=== PATIENT | male | born 1975 | race American Indian/Alaskan Native ===

== ENCOUNTER 2018-04-20 10:59 | Outpatient (CLI) | payer BC | END 2018-04-20 11:00 | disposition home or self-care (01) | LOC: C.DIABED 10:59 | DX: E66.01 Morbid (severe) obesity due to excess calories (principal) ==

== ENCOUNTER 2018-05-14 11:43 | Outpatient (CLI) | payer BC | END 2018-05-14 11:44 | disposition home or self-care (01) | LOC: C.DIABED 11:43 ==